=== PATIENT | male | born 1960 | race Caucasian/White ===

== ENCOUNTER 2017-04-26 17:54 | Emergency (ER) | payer OTHER ==
[~2017-04-26] VITALS: Ht 180.3 cm; Wt 97.1 kg
[2017-04-26] MEDS ORDERED: HYDROCHLOROTHIA25 MG (18:22)
[2017-04-26] MEDS ORDERED: TOPROL XL50 M1 (18:22)
[2017-04-26] MEDS ORDERED: AVAPRO300 MG (18:23)
[2017-04-26] MEDS ORDERED: TUSSI PRES-B L120 M1 PO (21:59)
[2017-04-26] MEDS ORDERED: ZITHROMAX TRI-500 MG PO (21:59)
== END 2017-04-26 22:03 | disposition home or self-care (01) ==
LOC: ER 17:54
DX: B34.9 Viral infection, unspecified (principal)